=== PATIENT | female | born 1935 | race Caucasian/White ===

== ENCOUNTER 2017-07-13 13:38 | Observation (INO) | payer MEDICARE, BC ==
[~2017-07-13] VITALS: Ht 175.3 cm; Wt 93.0 kg
[~2017-07-13 13:38] MED LIST: BACTRIM DS1 TAB PO; ELAVIL25 M1 PO; FUROSEMIDE20 MG PO; LEVOTHYROXIN25 MCG; LEVOTHYROXIN25 MCG PO; LOSARTAN POT50 MG PO; MICARDIS H80 MG/25 M PO; NAPROSYN375 MG PO; TIZANIDINE HCL2 M1 PO; VAGIFEM10 MCG PO
--- NOTE | 2017-07-13 14:00 | NUR ---
AMBULATORY TO ER ROOM 9, TO BED. PT REFUSES WHEELCHAIR. EKG UPON ARRIVAL TO ROOM
--- NOTE | 2017-07-13 14:39 | NUR ---
PATIENT REPORTS CRAMP LIKE PAINS TO LEFT BREAST FOR YEARS INCREASING TODAY. REPORTS NO PAIN CURRENTLY. CALL LIGHT WITHIN REACH, WILL CONTINUE TO MONITOR.
--- NOTE | 2017-07-13 14:41 | NUR ---
PATIENT IS UNABLE TO VERIFY MEDICATIONS AT THIS TIME.
[2017-07-13 15:05] LABS: ALBUMIN 4.3 g/dL (3.2-5.0); ALKALINE PHOSPHATASE 85 u/l (38-126); ANION GAP 17 (6-22 (CALC)); BILIRUBIN, TOTAL 0.5 mg/dL (0.0-1.4); BUN 21 mg/dL (8-23); BUN/CREATININE RATIO 19 (12-20 (CALC)); CALCIUM 9.4 mg/dL (8.4-10.2); CARBON DIOXIDE 23 mmol/l (22-30); CHLORIDE 105 mmol/l (95-108); CREATININE 1.1 mg/dL (0.5-1.0); GFR 48 ML/MIN (>=60 (CALC)); GFR FOR AFR.AMER. 58 ML/MIN (>=60 (CALC)); GLUCOSE 96 mg/dL (82-115); LIPASE 123 u/l (23-300); POTASSIUM 3.9 mmol/l (3.5-5.1); SGOT/AST 24 u/l (9-36); SGPT/ALT 28 u/l (11-66); SODIUM 142 mmol/l (137-146); TOTAL PROTEIN 7.6 g/dL (6.3-8.2)
[2017-07-13 15:24] LABS: HEMATOCRIT 30.6 % (37.0-47.0); HEMOGLOBIN 9.1 g/dl (12.0-16.0); IMMATURE GRANULOCYTES 0.3 % (0.0-1.0); MEAN CELL VOLUME 72.5 fL CALC (80.0-100.0); MEAN CORPUSCULAR HGB 21.6 pG CALC (26.0-32.0); MEAN CORPUSCULAR HGB CONC 29.7 g/L CALC (32.0-36.0); NEUT# 6.94 thou/uL (2.00-7.15); RED BLOOD COUNT 4.22 mill/uL (4.20-5.60); RED CELL DISTRI WIDTH 19.3 % (11.5-15.5)
--- NOTE | 2017-07-13 15:45 | NUR ---
PATIENT RESTING ON STRETCHER, RESPS EVEN AND UNLABORED. DENIES ANY PAIN AT THIS TIME. REHAB SPEC IN PLACE. SR 67. AWAITING RESULTS, CALL LIGHT WITHIN REACH. WILL CONTINUE TO MONITOR.
--- NOTE | 2017-07-13 17:00 | NUR ---
MD AT BEDSIDE TO DISCUSS RESULTS
--- NOTE | 2017-07-13 18:00 | NUR ---
PATIENT REPORTS NO CHEST PAIN OR PRESSURE. REPOSITIONED AND WARM BLANKET PROVIDED. CALL LIGTH WITHIN REACH, WILL CONTINUE TO MONITOR.
--- NOTE | 2017-07-13 18:15 | NUR ---
ATTEMPTED TO CONTACT [facility] TO OBTAIN MEDICATION LIST, PLACED ON HOLD FOR 15 MIN AND UNABLE TO GET IN CONTACT WITH PHARMACY [facility].
--- NOTE | 2017-07-13 18:40 | NUR ---
CONSULT TO PHARMACY PLACED.
--- NOTE | 2017-07-13 19:03 | NUR ---
REPORT GIVEN TO HARIKA MANUEL. CARE RELINQUISHED.
--- NOTE | 2017-07-13 19:29 | NUR ---
PT ASSISTED TO BR AND BACK TO BED. NO DISTRESS NOTED.
--- NOTE | 2017-07-13 19:49 | NUR ---
Admission Note Report Given to: moiz rodriguez Transported by: Wheelchair x Stretcher Transported with: x Nurse Transporter x Patent IV O2 Painter Maintenance
[2017-07-13 20:12] VITALS: BP 173/76
--- NOTE | 2017-07-13 20:25 | NUR ---
PT ARRIVED TO ROOM WITH ER NURSE. PT AMBULATED TO SCALE, THEN TO BED. VITAL SIGNS OBTAINED. PT ORIENTED TO ROOM AND TO CALL LIGHT SYSTEM. PT DENIES ANY PAIN OR DISCOMFORT. RESP EVEN AND UNLABORED. LUNGS CLEAR, DIMINISHED IN BASES. NO DISTRESS NOTED. ABD DISTENDED, SOFT. BOWEL SOUNDS PRESENT. PT HAS ABD TENDERNESS IN LOWER ABD. PT STATES BM YESTERDAY MORNING. PEDAL PULSES PALPATED BILAT. IV RFA PATENT, FLUSHED WITHOUT DIFFICULTY. PT REPOSITIONED FOR COMFORT. FREQUENT ROUNDS MADE. SAFETY PRECAUTIONS REINFORCED. CALL LIGHT WITHIN REACH.
--- NOTE | 2017-07-13 20:25 | NUR ---
Admission Note Report Given to: Patrice OAKES LPN Transported by: Wheelchair X Stretcher Transported with: X Nurse Transporter X Patent IV O2 Repair Welder
--- NOTE | 2017-07-13 20:40 | NUR ---
DR NOTIFIED OF BP: 176/72. HR : 66. PT DENIES ANY PAIN OR DISCOMFORT.
[2017-07-13 21:56] VITALS: BP 137/76
--- NOTE | 2017-07-14 00:35 | NUR ---
PT RESTING IN BED WATCHING TV. RESP EVEN AND UNLABORED. NO DISTRESS NOTED. PT DENIES ANY PAIN OR DISCOMFORT. CALL LIGHT WITHIN REACH.
--- NOTE | 2017-07-14 04:15 | NUR ---
PT APPEARS TO BE SLEEPING. RESP EVEN AND UNLABORED. NO DISTRESS NOTED. CALL LIGHT WITHIN REACH.
--- NOTE | 2017-07-14 05:33 | NUR ---
CUTTING MACHINE OPERATOR HELPER IN ROOM WITH PT ASSISTING WITH SHOWER. PT DENIES ANY PAIN OR DISCOMFORT. ASSESMENT UNCHANGED.
[2017-07-14 05:36] VITALS: BP 148/72
[2017-07-14 06:48] LABS: HEMATOCRIT 30.8 % (37.0-47.0); HEMOGLOBIN 9.3 g/dl (12.0-16.0); IMMATURE GRANULOCYTES 0.6 % (0.0-1.0); MEAN CELL VOLUME 72.3 fL CALC (80.0-100.0); MEAN CORPUSCULAR HGB 21.8 pG CALC (26.0-32.0); MEAN CORPUSCULAR HGB CONC 30.2 g/L CALC (32.0-36.0); NEUT# 7.96 thou/uL (2.00-7.15); RED BLOOD COUNT 4.26 mill/uL (4.20-5.60)
[2017-07-14 07:07] LABS: ANION GAP 17 (6-22 (CALC)); BUN 19 mg/dL (8-23); BUN/CREATININE RATIO 22 (12-20 (CALC)); CALCIUM 9.5 mg/dL (8.4-10.2); CARBON DIOXIDE 24 mmol/l (22-30); CHLORIDE 107 mmol/l (95-108); CREATININE 0.9 mg/dL (0.5-1.0); GFR 60 ML/MIN (>=60 (CALC)); GFR FOR AFR.AMER. > 60 ML/MIN (>=60 (CALC)); GLUCOSE 119 mg/dL (82-115); POTASSIUM 4.4 mmol/l (3.5-5.1); SODIUM 143 mmol/l (137-146)
--- NOTE | 2017-07-14 09:42 | NUR ---
PT.IS SITTING UPRIGHT IN BED W/TV ON AND CALL LIGHT AT SIDE. SHE IS LOCX4. REPORTS BM YESTERDAY X2 AND STATES THAT SHE MAY NOT GO TODAY FOR STOOL SAMPLE BECAUSE SHE USUALLY ONLY GOES EVERY COUPLE OF DAYS. SHE HAS BEEN INSTRUCTED TO CALL IF SHE MANAGES TO HAVE A BM SO THAT WE CAN COLLECT SAMPLE. 1+ EDEMA TO LOWER EXTREMETIES. PT.DENIES ANY OTHER NEEDS AT THIS TIME, DENIES PAIN OR N/V.
[2017-07-14 09:47] VITALS: BP 143/79
[2017-07-14 16:30] VITALS: BP 156/71
[2017-07-14] MEDS ORDERED: PROTONIX40 MG PO (23:31)
== END 2017-07-14 17:32 | disposition home or self-care (01) ==
LOC: ED 13:38 → ED-I 14:28 → ED 14:28 → ED-I 17:35 → ED 18:57 → MS2 18:58
PROVIDERS: Emergency Medicine; Nurse Practitioner Family; ADMIT Internal Medicine; ATTEND Internal Medicine
DX: D50.9 Iron deficiency anemia, unspecified (principal); K59.00 Constipation, unspecified; I10 Essential (primary) hypertension; M19.90 Unspecified osteoarthritis, unspecified site
CPT/HCPCS: J1756

== ENCOUNTER 2017-09-08 06:41 | Day surgery (SDC) | payer MEDICARE, BC ==
[~2017-09-08 06:41] MED LIST changes: +LEVOTHYROXIN50 MCG PO; +PROTONIX40 MG PO
[2017-09-08 09:57] VITALS: BP 149/65
== END 2017-09-08 10:10 | disposition home or self-care (01) ==
LOC: ENDO 06:41 → ORM 10:15
PROVIDERS: ATTEND Internal Medicine Gastroenterology
PROC: 0DB48ZX Excision of Esophagogastric Junction, Via Natural or Artificial Opening Endoscopic, Diagnostic (ICD-10-PCS; principal; 2017-09-08)
PROC: 0DBP8ZX Excision of Rectum, Via Natural or Artificial Opening Endoscopic, Diagnostic (ICD-10-PCS; 2017-09-08)
PROC: 0DBK8ZX Excision of Ascending Colon, Via Natural or Artificial Opening Endoscopic, Diagnostic (ICD-10-PCS; 2017-09-08)
DX: D64.9 Anemia, unspecified (principal); K59.00 Constipation, unspecified; K44.9 Diaphragmatic hernia without obstruction or gangrene; K29.70 Gastritis, unspecified, without bleeding; K20.9 Esophagitis, unspecified; K64.4 Residual hemorrhoidal skin tags; K57.30 Diverticulosis of large intestine without perforation or abscess without bleeding; D12.7 Benign neoplasm of rectosigmoid junction; D12.8 Benign neoplasm of rectum; D12.2 Benign neoplasm of ascending colon; I10 Essential (primary) hypertension; E78.00 Pure hypercholesterolemia, unspecified; Z80.0 Family history of malignant neoplasm of digestive organs; Z86.010 Personal history of colon polyps

== ENCOUNTER 2018-09-01 09:23 | Emergency (ER) | payer MEDICARE, BC ==
[~2018-09-01] VITALS: Ht 175.3 cm; Wt 102.0 kg
[2018-09-01 11:41] LABS: URINE BILIRUBIN - DIPSTICK NEGATIVE (NEGATIVE); URINE BLOOD DIPSTICK SMALL (NEGATIVE); URINE COLOR YELLOW; URINE GLUCOSE - DIPSTICK NEGATIVE (NEGATIVE); URINE KETONE NEGATIVE (NEGATIVE); URINE NITRITE - DIPSTICK NEGATIVE (Negative); URINE PH 5.5 (4.5-8.0); URINE PROTEIN - DIPSTICK NEGATIVE (NEG-TRACE); URINE SPECIFIC GRAVITY >=1.030; URINE UROBILINOGEN - DIPSTICK 0.2 E.U./dL (0.2)
[2018-09-01 11:46] LABS: URINE LEUK ESTERASE SMALL (NEGATIVE)
[2018-09-01] MEDS ORDERED: LOTRISONE CREAM15 GM EX (11:49)
[2018-09-01] MEDS ORDERED: AMOX/K CLAV875 M1 PO (11:49)
[2018-09-01 11:59] LABS: URINE SQUAMOUS EPITHELIAL CELL FEW EPI/hpf (0-FEW)
[2018-09-01 12:07] VITALS: BP 159/77
== END 2018-09-01 12:07 | disposition home or self-care (01) ==
LOC: ED 09:23
PROVIDERS: Emergency Medicine
DX: H66.92 Otitis media, unspecified, left ear (principal); N39.0 Urinary tract infection, site not specified; L30.9 Dermatitis, unspecified; M19.90 Unspecified osteoarthritis, unspecified site; I10 Essential (primary) hypertension

== ENCOUNTER → 2018-09-10 | Outpatient (REF) ==
[~2018-09-10] MED LIST changes: +AMOX/K CLAV875 M1 PO; +LOTRISONE CREAM15 GM EX
== END | disposition home or self-care (01) | DRG 812 ==
LOC: LAB 10:37
PROVIDERS: ATTEND Nurse Practitioner Family
DX: D50.8 Other iron deficiency anemias (principal); E03.9 Hypothyroidism, unspecified; E78.5 Hyperlipidemia, unspecified; I10 Essential (primary) hypertension

== ENCOUNTER 2020-09-04 15:48 | Inpatient (IN) | payer MEDICARE, BC ==
[~2020-09-04] VITALS: Ht 175.3 cm; Wt 90.0 kg
[2020-09-04 16:38] LABS: IMMATURE GRANULOCYTES 0.9 % (0.0-5.0); MEAN CORPUSCULAR HGB CONC 30.5 g/dL CAL (32.0-36.0); NEUT# 3.3 thou/uL (2.00-7.15); RED BLOOD COUNT 5.17 mill/uL (4.20-5.60)
[2020-09-04 16:44] LABS: HEMATOCRIT 40.6 % (37.0-47.0); HEMOGLOBIN 12.4 g/dl (12.0-16.0); MEAN CELL VOLUME 78.5 fL CALC (80.0-100.0)
[2020-09-04 16:54] LABS: ALBUMIN 3.9 g/dL (3.2-5.0); ALKALINE PHOSPHATASE 70 u/l (38-126); ANION GAP 13 (6-22 (CALC)); BILIRUBIN, TOTAL 0.7 mg/dL (0.0-1.4); BUN 11 mg/dL (8-23); BUN/CREATININE RATIO 15 (12-20 (CALC)); CARBON DIOXIDE 27 mmol/l (22-30); CHLORIDE 100 mmol/l (95-108); CREATININE 0.8 mg/dL (0.5-1.0); GFR > 60 ML/MIN (>=60 (CALC)); GFR FOR AFR.AMER. > 60 ML/MIN (>=60 (CALC)); POTASSIUM 3.7 mmol/l (3.5-5.1); SODIUM 137 mmol/l (137-146); TOTAL PROTEIN 7.5 g/dL (6.3-8.2)
[2020-09-04 16:55] LABS: SGOT/AST 50 u/l (9-36)
[2020-09-04 16:56] LABS: ACT PARTIAL THROMBO TIME 24.4 SECONDS (20.0-32.5); INTERNATIONAL NORMALIZED RATIO 1.1 RATIO (0.7-1.3); PROTHROMBIN TIME 10.7 SECONDS (9.0-12.5)
[2020-09-04 17:30] LABS: C-REACTIVE PROTEIN 16.6 mg/dL (0-0.9)
[2020-09-04 18:30] VITALS: BP 144/83
[2020-09-04 20:00] VITALS: BP 189/92
[2020-09-04 21:45] VITALS: BP 159/75
[2020-09-05 04:00] VITALS: BP 180/82
[2020-09-05 05:05] LABS: HEMATOCRIT 35.4 % (37.0-47.0); HEMOGLOBIN 10.7 g/dl (12.0-16.0); IMMATURE GRANULOCYTES 0.9 % (0.0-5.0); MEAN CORPUSCULAR HGB 23.9 pG CALC (26.0-32.0); MEAN CORPUSCULAR HGB CONC 30.2 g/dL CAL (32.0-36.0); NEUT# 2.12 thou/uL (2.00-7.15); RED BLOOD COUNT 4.48 mill/uL (4.20-5.60); RED CELL DISTRI WIDTH 19.1 % (11.5-15.5)
[2020-09-05 05:12] VITALS: BP 156/70
[2020-09-05 05:36] LABS: ALKALINE PHOSPHATASE 54 u/l (38-126); ANION GAP 9 (6-22 (CALC)); BILIRUBIN, TOTAL 0.5 mg/dL (0.0-1.4); BUN 9 mg/dL (8-23); BUN/CREATININE RATIO 13 (12-20 (CALC)); CARBON DIOXIDE 27 mmol/l (22-30); CHLORIDE 105 mmol/l (95-108); CREATININE 0.7 mg/dL (0.5-1.0); GFR > 60 ML/MIN (>=60 (CALC)); GFR FOR AFR.AMER. > 60 ML/MIN (>=60 (CALC)); POTASSIUM 3.7 mmol/l (3.5-5.1); SGOT/AST 42 u/l (9-36); SODIUM 138 mmol/l (137-146)
[2020-09-05 06:17] LABS: TOTAL PROTEIN 5.8 g/dL (6.3-8.2)
[2020-09-05 07:20] VITALS: BP 154/72
[2020-09-05 10:30] VITALS: BP 155/73
[2020-09-05 15:00] VITALS: BP 140/78
[2020-09-05 19:10] VITALS: BP 143/68
[2020-09-06 00:05] VITALS: BP 157/75
[2020-09-06 04:00] VITALS: BP 165/70
[2020-09-06 05:53] LABS: HEMATOCRIT 36.7 % (37.0-47.0); HEMOGLOBIN 10.9 g/dl (12.0-16.0); IMMATURE GRANULOCYTES 2.1 % (0.0-5.0); MEAN CORPUSCULAR HGB 23.7 pG CALC (26.0-32.0); MEAN CORPUSCULAR HGB CONC 29.7 g/dL CAL (32.0-36.0); NEUT# 1.47 thou/uL (2.00-7.15); RED BLOOD COUNT 4.59 mill/uL (4.20-5.60); RED CELL DISTRI WIDTH 19.1 % (11.5-15.5)
[2020-09-06 06:05] LABS: ALBUMIN 2.9 g/dL (3.2-5.0); ALKALINE PHOSPHATASE 54 u/l (38-126); ANION GAP 11 (6-22 (CALC)); BILIRUBIN, TOTAL 0.5 mg/dL (0.0-1.4); BUN 12 mg/dL (8-23); BUN/CREATININE RATIO 20 (12-20 (CALC)); CARBON DIOXIDE 25 mmol/l (22-30); CHLORIDE 106 mmol/l (95-108); CREATININE 0.6 mg/dL (0.5-1.0); GFR > 60 ML/MIN (>=60 (CALC)); GFR FOR AFR.AMER. > 60 ML/MIN (>=60 (CALC)); POTASSIUM 4.2 mmol/l (3.5-5.1); SGOT/AST 39 u/l (9-36); SODIUM 138 mmol/l (137-146); TOTAL PROTEIN 5.7 g/dL (6.3-8.2)
[2020-09-06 07:30] VITALS: BP 152/84
[2020-09-06 10:30] VITALS: BP 147/71
[2020-09-06 15:00] VITALS: BP 147/72
[2020-09-06 19:00] VITALS: BP 150/63
[2020-09-07] VITALS (10 sets, daily range): BP systolic 118–188; BP diastolic 59–91
[2020-09-07 06:16] LABS: HEMATOCRIT 37.2 % (37.0-47.0); HEMOGLOBIN 11.2 g/dl (12.0-16.0); IMMATURE GRANULOCYTES 3.8 % (0.0-5.0); MEAN CORPUSCULAR HGB 23.8 pG CALC (26.0-32.0); MEAN CORPUSCULAR HGB CONC 30.1 g/dL CAL (32.0-36.0); NEUT# 4.25 thou/uL (2.00-7.15); RED BLOOD COUNT 4.71 mill/uL (4.20-5.60); RED CELL DISTRI WIDTH 19.2 % (11.5-15.5)
[2020-09-07 06:44] LABS: ALBUMIN 2.9 g/dL (3.2-5.0); ALKALINE PHOSPHATASE 57 u/l (38-126); ANION GAP 11 (6-22 (CALC)); BILIRUBIN, TOTAL 0.5 mg/dL (0.0-1.4); BUN 13 mg/dL (8-23); BUN/CREATININE RATIO 24 (12-20 (CALC)); C-REACTIVE PROTEIN 6.3 mg/dL (0-0.9); CARBON DIOXIDE 27 mmol/l (22-30); CHLORIDE 107 mmol/l (95-108); CREATININE 0.6 mg/dL (0.5-1.0); GFR > 60 ML/MIN (>=60 (CALC)); GFR FOR AFR.AMER. > 60 ML/MIN (>=60 (CALC)); POTASSIUM 4.1 mmol/l (3.5-5.1); SGOT/AST 37 u/l (9-36); SODIUM 140 mmol/l (137-146); TOTAL PROTEIN 5.7 g/dL (6.3-8.2)
[2020-09-08] VITALS (7 sets, daily range): BP systolic 142–191; BP diastolic 68–80
[2020-09-08 06:18] LABS: HEMATOCRIT 40.2 % (37.0-47.0); MEAN CORPUSCULAR HGB 23.6 pG CALC (26.0-32.0); MEAN CORPUSCULAR HGB CONC 29.9 g/dL CAL (32.0-36.0); NEUT# 6.61 thou/uL (2.00-7.15); RED BLOOD COUNT 5.09 mill/uL (4.20-5.60); RED CELL DISTRI WIDTH 19.2 % (11.5-15.5)
[2020-09-08 06:39] LABS: ALBUMIN 3.1 g/dL (3.2-5.0); ALKALINE PHOSPHATASE 62 u/l (38-126); ANION GAP 11 (6-22 (CALC)); BILIRUBIN, TOTAL 0.7 mg/dL (0.0-1.4); BUN 13 mg/dL (8-23); BUN/CREATININE RATIO 26 (12-20 (CALC)); CARBON DIOXIDE 25 mmol/l (22-30); CHLORIDE 108 mmol/l (95-108); CREATININE 0.5 mg/dL (0.5-1.0); GFR > 60 ML/MIN (>=60 (CALC)); GFR FOR AFR.AMER. > 60 ML/MIN (>=60 (CALC)); POTASSIUM 4.1 mmol/l (3.5-5.1); SGOT/AST 37 u/l (9-36); SODIUM 140 mmol/l (137-146); TOTAL PROTEIN 6.1 g/dL (6.3-8.2)
[2020-09-08 07:04] LABS: IMMATURE GRANULOCYTES 8.6 % (0.0-5.0)
[2020-09-09] VITALS (7 sets, daily range): BP systolic 141–182; BP diastolic 66–84
[2020-09-09 06:04] LABS: HEMATOCRIT 37.5 % (37.0-47.0); HEMOGLOBIN 11.5 g/dl (12.0-16.0); MEAN CELL VOLUME 78.1 fL CALC (80.0-100.0); MEAN CORPUSCULAR HGB CONC 30.7 g/dL CAL (32.0-36.0); NEUT# 6.75 thou/uL (2.00-7.15); RED BLOOD COUNT 4.8 mill/uL (4.20-5.60); RED CELL DISTRI WIDTH 19.4 % (11.5-15.5)
[2020-09-09 06:34] LABS: ALBUMIN 3.1 g/dL (3.2-5.0); ALKALINE PHOSPHATASE 64 u/l (38-126); ANION GAP 12 (6-22 (CALC)); BILIRUBIN, TOTAL 0.7 mg/dL (0.0-1.4); BUN 12 mg/dL (8-23); BUN/CREATININE RATIO 25 (12-20 (CALC)); C-REACTIVE PROTEIN 6.5 mg/dL (0-0.9); CARBON DIOXIDE 26 mmol/l (22-30); CHLORIDE 107 mmol/l (95-108); CREATININE 0.5 mg/dL (0.5-1.0); GFR > 60 ML/MIN (>=60 (CALC)); GFR FOR AFR.AMER. > 60 ML/MIN (>=60 (CALC)); SGOT/AST 38 u/l (9-36); SODIUM 141 mmol/l (137-146); TOTAL PROTEIN 5.9 g/dL (6.3-8.2)
[2020-09-09 06:47] LABS: IMMATURE GRANULOCYTES 10.2 % (0.0-5.0)
[2020-09-10] VITALS (7 sets, daily range): BP systolic 152–195; BP diastolic 68–84
[2020-09-10 05:53] LABS: HEMATOCRIT 38.6 % (37.0-47.0); HEMOGLOBIN 11.6 g/dl (12.0-16.0); MEAN CELL VOLUME 79.3 fL CALC (80.0-100.0); MEAN CORPUSCULAR HGB 23.8 pG CALC (26.0-32.0); MEAN CORPUSCULAR HGB CONC 30.1 g/dL CAL (32.0-36.0); RED BLOOD COUNT 4.87 mill/uL (4.20-5.60)
[2020-09-10 06:15] LABS: ANION GAP 13 (6-22 (CALC)); BUN 19 mg/dL (8-23); BUN/CREATININE RATIO 28 (12-20 (CALC)); CARBON DIOXIDE 26 mmol/l (22-30); CHLORIDE 107 mmol/l (95-108); CREATININE 0.7 mg/dL (0.5-1.0); GFR > 60 ML/MIN (>=60 (CALC)); GFR FOR AFR.AMER. > 60 ML/MIN (>=60 (CALC)); MAGNESIUM 2.5 mg/dL (1.6-2.3); POTASSIUM 4.3 mmol/l (3.5-5.1); SODIUM 142 mmol/l (137-146)
[2020-09-11] VITALS (8 sets, daily range): BP systolic 141–201; BP diastolic 68–110
[2020-09-11 05:53] LABS: HEMATOCRIT 38.2 % (37.0-47.0); HEMOGLOBIN 11.7 g/dl (12.0-16.0); MEAN CELL VOLUME 78.8 fL CALC (80.0-100.0); MEAN CORPUSCULAR HGB 24.1 pG CALC (26.0-32.0); MEAN CORPUSCULAR HGB CONC 30.6 g/dL CAL (32.0-36.0); NEUT# 6.48 thou/uL (2.00-7.15); RED BLOOD COUNT 4.85 mill/uL (4.20-5.60); RED CELL DISTRI WIDTH 20.5 % (11.5-15.5)
[2020-09-11 06:05] LABS: IMMATURE GRANULOCYTES 12.5 % (0.0-5.0)
[2020-09-11 06:11] LABS: ALKALINE PHOSPHATASE 65 u/l (38-126); ANION GAP 10 (6-22 (CALC)); BILIRUBIN, TOTAL 0.6 mg/dL (0.0-1.4); BUN 26 mg/dL (8-23); BUN/CREATININE RATIO 27 (12-20 (CALC)); C-REACTIVE PROTEIN 4.4 mg/dL (0-0.9); CARBON DIOXIDE 28 mmol/l (22-30); CHLORIDE 107 mmol/l (95-108); GFR 53 ML/MIN (>=60 (CALC)); GFR FOR AFR.AMER. > 60 ML/MIN (>=60 (CALC)); SGOT/AST 43 u/l (9-36); SODIUM 140 mmol/l (137-146); TOTAL PROTEIN 5.6 g/dL (6.3-8.2)
[2020-09-12 04:00] VITALS: BP 158/74
[2020-09-12 05:24] LABS: HEMOGLOBIN 10.9 g/dl (12.0-16.0); MEAN CELL VOLUME 79.8 fL CALC (80.0-100.0); MEAN CORPUSCULAR HGB 24.2 pG CALC (26.0-32.0); MEAN CORPUSCULAR HGB CONC 30.3 g/dL CAL (32.0-36.0); RED BLOOD COUNT 4.51 mill/uL (4.20-5.60); RED CELL DISTRI WIDTH 20.4 % (11.5-15.5)
[2020-09-12 06:08] LABS: ANION GAP 10 (6-22 (CALC)); BUN 24 mg/dL (8-23); BUN/CREATININE RATIO 35 (12-20 (CALC)); CARBON DIOXIDE 27 mmol/l (22-30); CHLORIDE 106 mmol/l (95-108); CREATININE 0.7 mg/dL (0.5-1.0); GFR > 60 ML/MIN (>=60 (CALC)); GFR FOR AFR.AMER. > 60 ML/MIN (>=60 (CALC)); MAGNESIUM 2.4 mg/dL (1.6-2.3); POTASSIUM 3.9 mmol/l (3.5-5.1); SODIUM 139 mmol/l (137-146)
[2020-09-12 07:57] VITALS: BP 183/88
[2020-09-12 11:43] VITALS: BP 143/60
[2020-09-12 16:14] VITALS: BP 154/75
[2020-09-12 20:00] VITALS: BP 161/69
[2020-09-12 23:55] VITALS: BP 153/77
[2020-09-13 04:00] VITALS: BP 176/67
[2020-09-13 05:38] LABS: HEMATOCRIT 38.1 % (37.0-47.0); HEMOGLOBIN 11.8 g/dl (12.0-16.0); MEAN CELL VOLUME 77.4 fL CALC (80.0-100.0); NEUT# 6.21 thou/uL (2.00-7.15); RED BLOOD COUNT 4.92 mill/uL (4.20-5.60); RED CELL DISTRI WIDTH 20.6 % (11.5-15.5)
[2020-09-13 05:39] LABS: IMMATURE GRANULOCYTES 10.5 % (0.0-5.0)
[2020-09-13 05:43] LABS: ALBUMIN 2.9 g/dL (3.2-5.0); ALKALINE PHOSPHATASE 70 u/l (38-126); ANION GAP 11 (6-22 (CALC)); BILIRUBIN, TOTAL 0.6 mg/dL (0.0-1.4); BUN 23 mg/dL (8-23); BUN/CREATININE RATIO 30 (12-20 (CALC)); C-REACTIVE PROTEIN 5.4 mg/dL (0-0.9); CARBON DIOXIDE 26 mmol/l (22-30); CHLORIDE 105 mmol/l (95-108); CREATININE 0.8 mg/dL (0.5-1.0); GFR > 60 ML/MIN (>=60 (CALC)); GFR FOR AFR.AMER. > 60 ML/MIN (>=60 (CALC)); SGOT/AST 50 u/l (9-36); SODIUM 138 mmol/l (137-146); TOTAL PROTEIN 5.6 g/dL (6.3-8.2)
[2020-09-13 08:53] VITALS: BP 158/66
[2020-09-13 11:19] VITALS: BP 152/62
[2020-09-13 15:35] VITALS: BP 175/87
[2020-09-13 18:08] VITALS: BP 164/81
[2020-09-13 20:00] VITALS: BP 132/74
[2020-09-14] VITALS: BP 153/78
[2020-09-14 04:00] VITALS: BP 162/72
[2020-09-14 08:00] VITALS: BP 161/76
[2020-09-14 11:45] VITALS: BP 142/70
[2020-09-14] MEDS ORDERED: ASPIRIN ADULT325 MG PO (12:10)
[2020-09-14] MEDS ORDERED: AMLODIPINE BESYL5 MG PO (12:10)
[2020-09-14 17:18] VITALS: BP 151/71
== END 2020-09-14 17:10 | DRG 177 ==
LOC: ED 15:48 → MS2 17:41
PROVIDERS: Nurse Practitioner; Physician Assistant; Student in an Organized Health Care Education/Training Program; ADMIT Internal Medicine; ATTEND Internal Medicine
PROC: XW033E5 Introduction of Remdesivir Anti-infective into Peripheral Vein, Percutaneous Approach, New Technology Group 5 (ICD-10-PCS; principal; 2020-09-09)
DX: U07.1 COVID-19 (principal); J12.82 Pneumonia due to coronavirus disease 2019; N17.9 Acute kidney failure, unspecified; I10 Essential (primary) hypertension; D50.9 Iron deficiency anemia, unspecified; E03.9 Hypothyroidism, unspecified; F41.9 Anxiety disorder, unspecified; M19.90 Unspecified osteoarthritis, unspecified site
CPT/HCPCS: J1650; J1756

== ENCOUNTER 2022-04-14 18:16 | Observation (INO) | payer MEDICARE, BC ==
[~2022-04-14] VITALS: Ht 175.3 cm; Wt 96.0 kg
[2022-04-14] VITALS (12 sets, daily range): BP systolic 147–191; BP diastolic 62–113
[~2022-04-14 18:16] MED LIST changes: +AMLODIPINE BESYL5 MG PO; +ASPIRIN ADULT325 MG PO
--- NOTE | 2022-04-14 18:54 | NUR ---
PT TO ROOM VIA WC
[2022-04-14 19:54] LABS: HEMATOCRIT 43.6 % (37.0-47.0); IMMATURE GRANULOCYTES 0.3 % (0.0-5.0); MEAN CORPUSCULAR HGB 27.8 pG CALC (26.0-32.0); MEAN CORPUSCULAR HGB CONC 31.9 g/dL CAL (32.0-36.0); NEUT# 11.59 thou/uL (2.00-7.15); RED CELL DISTRI WIDTH 16.7 % (11.5-15.5)
[2022-04-14 20:00] LABS: HEMOGLOBIN 13.9 g/dl (12.0-16.0); MEAN CELL VOLUME 87.2 fL CALC (80.0-100.0)
[2022-04-14 20:03] LABS: BILIRUBIN, TOTAL 0.6 mg/dL (0.0-1.4); CREATININE 1.1 mg/dL (0.5-1.0); MAGNESIUM 2.3 mg/dL (1.6-2.3)
[2022-04-14 20:08] LABS: ALBUMIN 4.6 g/dL (3.2-5.0); TOTAL PROTEIN 7.7 g/dL (6.3-8.2)
[2022-04-14 20:34] LABS: TSH, 3RD GENERATION 3.35 uIU/mL (0.47 - 4.68)
--- NOTE | 2022-04-14 20:35 | NUR ---
PT TRANSPORTED TO CT
--- NOTE | 2022-04-14 22:42 | NUR ---
FLEET ENEMA ADMINISTERED.
[2022-04-15] VITALS: BP 176/82
[2022-04-15 00:37] VITALS: BP 162/75
--- NOTE | 2022-04-15 00:48 | NUR ---
REPORT GIVEN TO LILLIAN SHABAZZ. PT IN NAD, A&OX4.
--- NOTE | 2022-04-15 05:43 | NUR ---
0032 Received this 86 year old female from ED via stretcher to room 278 with dx of abdominal pain and constipation. Patient alert and oriented x3. Patient reported no BM for 8 days. Patient oriented to room and call system. Poc also discussed with patient verbalized understanding.
[2022-04-15 06:32] VITALS: BP 164/69
[2022-04-15 06:33] VITALS: BP 164/69
--- NOTE | 2022-04-15 08:41 | NUR ---
PT COMPLAINING OF ABDOMEN PAIN 10/10, NAUSEA. MEDICATED SEE EMAR. ASSESSMENT PERFORMED. IV PATENT/FLUSHED. UPDATED PT IN CURRENT PLAN OF CARE. FALL/SAFTEY PRECAUITONIN PLACE, CALL LIGHT WITHIN REACH
--- NOTE | 2022-04-15 11:30 | NUR ---
PT HAVING MULTIPLE BOWEL MOVEMENTS WATERY DARK BROWN APPEARANCE WITH SMALL FORMED STOOLS. PT TOLERATED ENEMA. EDUCATED PT ON INDICATION OF ENEMA. PT INDICATED UNDERSTANDING. FALL/SAFTEY PRECAUTION IN PLACE, CALL LIGHT WITHIN REACH.
--- NOTE | 2022-04-15 12:39 | NUR ---
PT EATING LUNCH WITH FRIEND AT BEDSIDE. BREATIN EVEN AND UNLABORED. FALL/SAFTEY PRECAUTION IN PLACE, CALL LIGHT WITHIN REACH
[2022-04-15 14:44] VITALS: BP 160/73
--- NOTE | 2022-04-15 17:38 | NUR ---
PT RESTING IN BED. NO DISTRESS NOTED. BREATHING EVEN AND UNLABORED. FALL/SAFTEY PRECAUTION IN PLACE, CALL LIGHT WITHIN REACH.
[2022-04-15 18:49] VITALS: BP 147/51
[2022-04-16 03:48] VITALS: BP 142/61
[2022-04-16 04:00] VITALS: BP 142/61
[2022-04-16 04:58] LABS: HEMATOCRIT 38.4 % (37.0-47.0); HEMOGLOBIN 12.1 g/dl (12.0-16.0); MEAN CELL VOLUME 89.5 fL CALC (80.0-100.0); MEAN CORPUSCULAR HGB 28.2 pG CALC (26.0-32.0); MEAN CORPUSCULAR HGB CONC 31.5 g/dL CAL (32.0-36.0); RED BLOOD COUNT 4.29 mill/uL (4.20-5.60); RED CELL DISTRI WIDTH 16.8 % (11.5-15.5)
[2022-04-16 05:11] LABS: ANION GAP 13 (6-22 (CALC)); BUN 18 mg/dL (8-23); BUN/CREATININE RATIO 27 (12-20 (CALC)); CARBON DIOXIDE 21 mmol/l (22-30); CHLORIDE 109 mmol/l (95-108); CREATININE 0.7 mg/dL (0.5-1.0); GFR FOR AFR.AMER. > 60 ML/MIN (>=60 (CALC)); GFR OTHER RACES > 60 ML/MIN (>=60 (CALC)); MAGNESIUM 2.4 mg/dL (1.6-2.3); POTASSIUM 4.3 mmol/l (3.5-5.1); SODIUM 138 mmol/l (137-146)
[2022-04-16 07:07] VITALS: BP 145/69
--- NOTE | 2022-04-16 09:40 | NUR ---
pt sitting in bed. a&o x3. reports a couple of bms throughout the night but still feeling consitpated. clear breath sounds upon auscultation. active bowel sounds x4 quadrants. iv healthy and patent, IV site removed due to leaking. assessment completed. discussed poc. call light within reach.
--- NOTE | 2022-04-16 10:00 | NUR ---
dr chavarria at bedside for assessment and discussion of poc
--- NOTE | 2022-04-16 11:32 | NUR ---
pt sitting in chair, no distress noted. abx initiated, call light within reach.
[2022-04-16 16:29] VITALS: BP 159/71
--- NOTE | 2022-04-16 17:10 | NUR ---
pt sleeping in bed. no distress noted. call light within reach.
[2022-04-16 19:00] VITALS: BP 150/51
[2022-04-16 19:05] VITALS: BP 150/51
--- NOTE | 2022-04-16 19:32 | NUR ---
report given to oncoming shift
[2022-04-17 04:00] VITALS: BP 139/56
[2022-04-17 04:10] VITALS: BP 139/56
[2022-04-17 06:30] LABS: HEMATOCRIT 38.2 % (37.0-47.0); IMMATURE GRANULOCYTES 0.8 % (0.0-5.0); MEAN CELL VOLUME 89.9 fL CALC (80.0-100.0); MEAN CORPUSCULAR HGB 28.2 pG CALC (26.0-32.0); MEAN CORPUSCULAR HGB CONC 31.4 g/dL CAL (32.0-36.0); NEUT# 11.13 thou/uL (2.00-7.15); RED BLOOD COUNT 4.25 mill/uL (4.20-5.60); RED CELL DISTRI WIDTH 16.5 % (11.5-15.5)
--- NOTE | 2022-04-17 06:32 | NUR ---
Patient is alert and orientedx3 still c/o abdominal pain off and on. Medicated with morphine 4 mg iv x1 dose during the night.Abdomen soft non distended ,non tender. BS present x4. Patient had 3 large stool during the night. All meds given as ordered. Safety and comfort maintained.
[2022-04-17 07:06] LABS: ANION GAP 12 (6-22 (CALC)); BUN 11 mg/dL (8-23); BUN/CREATININE RATIO 17 (12-20 (CALC)); CARBON DIOXIDE 23 mmol/l (22-30); CHLORIDE 109 mmol/l (95-108); CREATININE 0.7 mg/dL (0.5-1.0); GFR FOR AFR.AMER. > 60 ML/MIN (>=60 (CALC)); GFR OTHER RACES > 60 ML/MIN (>=60 (CALC)); MAGNESIUM 2.3 mg/dL (1.6-2.3); POTASSIUM 4.4 mmol/l (3.5-5.1); SODIUM 140 mmol/l (137-146)
[2022-04-17 07:36] VITALS: BP 134/113
--- NOTE | 2022-04-17 07:36 | NUR ---
PT RESTING IN LOW FOWLERS POSITION. PT A/OX3 ASSESSMENT AND VS COMPLETE TO BE REASSESSED. HEART RHYTHM NORMAL RESPRIAITONS UNLABORED ON RA. BOWEL SOUNDS ACTIVE. IV NOTED TO LFA 20G. NS INFUSING. PT DENIES PAIN AT THE TIME,. ALL SAFETY PRECAUTIONS IN PLACE WITH CALL LIGHT INREACH.
[2022-04-17 08:08] VITALS: BP 138/60
[2022-04-17 08:12] VITALS: BP 138/60
[2022-04-17] MEDS ORDERED: SENNA PLUS 50-81 CAP PO (11:04)
[2022-04-17] MEDS ORDERED: MIRALAX17 GM PO (11:05)
[2022-04-17] MEDS ORDERED: METRONIDAZOLE500 MG PO (11:06)
[2022-04-17] MEDS ORDERED: CIPROFLOXACN500 MG PO (11:06)
--- NOTE | 2022-04-17 12:34 | NUR ---
Discharge instructions given. Patient verbalizes understanding of same. Discharged in stable condition via Wheelchair to Home with staff. All belongings sent with pt. PT IV REMOVED .
== END 2022-04-17 12:34 | disposition home or self-care (01) ==
LOC: ED 18:16 → ED-I 23:10 → ED 23:31 → MS2 23:32
PROVIDERS: Family Medicine; Internal Medicine; ADMIT Internal Medicine; ATTEND Internal Medicine
DX: K57.32 Diverticulitis of large intestine without perforation or abscess without bleeding (principal); K56.41 Fecal impaction; I10 Essential (primary) hypertension; E03.9 Hypothyroidism, unspecified; Z20.822 Contact with and (suspected) exposure to COVID-19
CPT/HCPCS: J1650; Q9967